=== PATIENT | female | born 1960 | race African-American/Black ===

== ENCOUNTER → 2017-05-06 | Outpatient (CLI) | payer MEDICARE ==
[~2017-05-06] MED LIST: ASPI-266 PO; GADOBUTROL 10 MMOL/10 ML (GADAVIST) VIAL IV ONE; LEVO500T69 PO; LISI20TA PO; METO-272 PO; TPR100T PO; TPR25T PO; VALP250C3 PO
--- NOTE | 2017-05-07 14:28 | Diagnostic Imaging Report ---
PROCEDURE: MR imaging of the brain with and without contrast. TECHNIQUE: Multiplanar, multisequence MR imaging of the brain was performed with and without contrast. INDICATION: New onset headaches. 10 mL of Gadavist is administered intravenously. COMPARISON: Outside study clouded from , performed in 2013, is reviewed. FINDINGS: There is no diffusion restriction to suggest an acute infarct or other diffusion abnormality. There is a resection cavity seen along the right parafalcine region and the superior posterior aspect along the right parietal area. When compared to 2014 exam, it has a similar appearance. There is an enhancing nodule measuring 9 x 8 x 6 mm based on the falx projecting into the right side and abutting the undersurface of the superior sagittal sinus. 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 The adjacent portion of the right parietal lobe demonstrates T2 hyperintense signal abnormality with no mass effect and no contrast enhancement suggestive of gliosis and postsurgical changes. There is otherwise no significant brain signal abnormality or evidence of demyelinating process. Very minimal periventricular and deep white matter T2 hyperintensities seen are suggestive of minimal changes of chronic microvascular ischemic disease, commonly seen at the patient's age. No hydrocephalus. The brainstem and cerebellum appear unremarkable. The central vascular flow-voids appear unremarkable. The internal auditory canals and inner ear structures appear symmetric. The pituitary gland is normal in size with no hypothalamic or pineal region mass. There is minimal mucosal thickening in the ethmoidal air cells noted. 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 Dictated on workstation # [id number]
== END ==
LOC: RAD 15:52
PROVIDERS: ATTEND Nurse Practitioner Family
DX: R51 Headache (principal)
CPT/HCPCS: 70553